=== PATIENT | female | born 1935 ===

== ENCOUNTER 2018-05-01 11:13 | Emergency (ER) | payer OTHER ==
[~2018-05-01] VITALS: Ht 147.3 cm; Wt 45.4 kg
[2018-05-01] MEDS ORDERED: ASPIR 8181 MG PO (11:41)
[2018-05-01] MEDS ORDERED: COREG CR10 MG (11:41)
[2018-05-01] MEDS ORDERED: ISOSORBIDE DINI30 MG PO (11:42)
[2018-05-01] MEDS ORDERED: VASOTEC10 MG PO (11:42)
== END 2018-05-01 17:50 | disposition home or self-care (01) ==
LOC: ER 11:13
DX: G45.8 Other transient cerebral ischemic attacks and related syndromes (principal); R42 Dizziness and giddiness; R47.81 Slurred speech; R47.01 Aphasia; I65.21 Occlusion and stenosis of right carotid artery

== ENCOUNTER 2018-05-19 15:40 | Emergency (ER) | payer OTHER ==
[~2018-05-19] VITALS: Ht 152.4 cm; Wt 49.9 kg
[~2018-05-19 15:40] MED LIST: ASPIR 8181 MG PO; COREG CR10 MG; ISOSORBIDE DINI30 MG PO; VASOTEC10 MG PO
[2018-05-19] MEDS ORDERED: RANITIDINE HCL75 MG (16:10)
[2018-05-19] MEDS ORDERED: CRESTOR10 MG (16:10)
[2018-05-19] MEDS ORDERED: ONDANSETRON ODT4 MG PO (22:40)
[2018-05-19] MEDS ORDERED: PEPCID AC20 MG PO (22:40)
[2018-05-19] MEDS ORDERED: NEURONTIN300 MG PO (22:40)
== END 2018-05-19 22:59 | disposition home or self-care (01) ==
LOC: ER 15:40
DX: B02.30 Zoster ocular disease, unspecified (principal)